=== PATIENT | male | born 1985 | race Caucasian/White ===

== ENCOUNTER → 2023-01-03 | Outpatient (CLI) | payer BC ==
--- NOTE | 2023-01-03 13:38 | NM ---
EXAMINATION TYPE: NM bone 3 phase DATE OF EXAM: 01/03/2023 COMPARISON: NONE HISTORY: Pain Triple phase bone scintigraphy was performed following the injection of 22.3 mCi Tc 99m MDP. Immedia te images and 5 hours post injection images acquired. FINDINGS: There is slightly increased flow to the right foot. There are focal areas of increased uptake involvi ng the right calcaneus and involving the mid-distal tarsal region. Within the left lung there is a additional focus of increased uptake. IMPRESSION: 1. There is nonspecific uptake involving the right calcaneus in bilateral mid tarsal region. X-ray co rrelation is recommended to assess for postarthritic change, hypertrophic spurring, fracture. Osteomy elitis cannot be excluded by bone scan. Therefore, x-rays recommended
== END | disposition home or self-care (01) ==
LOC: RADNMMAIN 07:23
PROVIDERS: ATTEND Family Medicine
DX: M89.8X7 Other specified disorders of bone, ankle and foot (principal); M79.671 Pain in right foot
CPT/HCPCS: 78315; A9503